=== PATIENT | female | born 1980 | race Caucasian/White ===

== ENCOUNTER 2016-08-13 19:41 | Observation (INO) | payer SELFPAY ==
[2016-08-13] MEDS ORDERED: ALUMINUM & MAGNESIUM HYDROXIDE 30 ML UD PO ONE (19:59)
[2016-08-13] MEDS ORDERED: ONDANSETRON ODT 8 MG TAB SL SCH (20:00)
[2016-08-13] MEDS ORDERED: MORPHINE SULFATE INJ 10 MG/ML VIAL IV ONE (20:27)
[2016-08-13] MEDS ORDERED: SUCRALFATE 1 GM/10 ML 1 GM UD PO ONE (20:27)
--- NOTE | 2016-08-13 20:50 | RAD ---
PROCEDURE: Abdomen Series Clinical History: abdominal pain Indication: Same as above Comparison: Chest x-ray done on 2013 Technique: Two views of the abdomen and pelvis and 1.0 views of the chest were done. Findings: There is no gross evidence of free air in the abdomen or the pelvis . The small and large bowel gas pattern does not show any evidence of obstruction, ileus or bowel wall thickening. There is no visualization of radiopaque calculi in the outline of the urinary tract. There are no discrete airspace infiltrates or pleural effusions. The cardiomediastinal silhouette is unremarkable There is no significant constipation. Impression: Unremarkable chest, abdomen and pelvis Location of Interpretation: [id number] Electronically signed by: Parker Chapman MD 08/13/2016 8:49 PM CDT Workstation: [employer]
[2016-08-13] MEDS ORDERED: SODIUM CHLORIDE 0.9% 1000ML 1,000 ML IVS ONE (21:31)
[2016-08-13] MEDS ORDERED: ACETAMINOPHEN 325 MG TAB PO ONE (21:31)
--- NOTE | 2016-08-13 21:31 | ED.PDOC ---
History of Present Illness - General Chief Complaint: Abdominal Pain Time Seen by Provider: 08/13/16 19:45 Source: patient Exam Limitations: no limitations - History of Present Illness Initial Comments: the patient is a 36-year-old female presenting secondary to epigastric discomfort and moderate nausea for approximately 18 hours. No definite fevers. One to 2 episodes of diarrhea. She was feeling fine prior to that. She does have a history of iron deficiency and has received iron infusions with her previous pregnancies. No syncope or near syncope. No chest pain or shortness of breath. Severity: moderate Improving Factors: nothing Worsening Factors: eating Associated Symptoms: loss of appetite, malaise, nausea/vomiting Allergies/Adverse Reactions: Allergies NO KNOWN ALLERGY Allergy (Verified 08/13/16 19:55) Home Medications: Ambulatory Orders Cetirizine HCl [Zyrtec] 10 mg PO DAILY 07/24/14 Desvenlafaxine Succinate [Pristiq] 25 mg PO DAILY 07/24/14 Fluticasone/Salmeterol 250/50 [Advair Diskus] 1 puff INH DAILY 07/24/14 Vit W/ Ferrous Fumara [] 1 tab PO DAILY 07/24/14 Ferrous Sulfate [Feosol Tab] 325 mg PO QD 08/21/14 Potassium Chloride Tab [Micro-K] 10 meq PO DAILY 08/21/14 Hydrocortisone (Rectal) [Proctocort] 1 % IL QID PRN #1 cre 08/23/14 Famotidine 20 mg PO DAILY #30 tab 08/13/16 Ondansetron [Zofran Odt] 4 mg PO Q4H PRN #10 tab 08/13/16 Review of Systems - Review of Systems Constitutional: States: malaise EENTM: States: no symptoms reported Respiratory: States: no symptoms reported Cardiology: States: no symptoms reported Gastrointestinal/Abdominal: States: see HPI Genitourinary: States: no symptoms reported Musculoskeletal: States: no symptoms reported Skin: States: no symptoms reported Neurological: States: no symptoms reported Endocrine: States: no symptoms reported All other Systems: No Change from Baseline Past Medical History (General) - Patient Medical History Hx Seizures: No Hx Stroke: No Hx Dementia: No Hx Asthma: Yes Hx of COPD: No Hx Cardiac Disorders: No Hx Congestive Heart Failure: No Hx Pacemaker: No Hx Hypertension: No Hx Thyroid Disease: No Hx Diabetes: No Hx Gastroesophageal Reflux: No Hx Renal Disease: No Hx Cancer: No Hx of HIV: No Hx Hepatitis C: No Hx MRSA: No Surgical History: other - Vaccination History Hx Tetanus, Diphtheria Vaccination: Yes Hx Influenza Vaccination: No Hx Pneumococcal Vaccination: No Immunizations Up to Date: No - Social History Hx Tobacco Use: Yes Hx Chewing Tobacco Use: No Hx Alcohol Use: No Hx Substance Use: No Hx Substance Use Treatment: No Hx Depression: No Feels Threatened In Home Enviroment: No Feels Threatened In a Relationship: No Hx Physical Abuse: No Hx Emotional Abuse: No Hx Suspected Abuse: No - Activities of Daily Living Hospice Agency (if applicable):: None - Female History Patient is a Female of Child Bearing Age (10 -59 yrs old): Yes Hx Last Menstrual Period: 08/05/16 Patient : No Expected Date of Delivery:: 08/28/14 Family Medical History - Family History Father Name: ADALBERTO Age (years): 63 Living Status: Still Living Hx Family Hypertension: Yes Age of Onset (years of age): 59 Hx Family Stroke: Yes Age of Onset (years of age): 59 Hx Family Diabetes: Yes - TYPE II Age of Onset (years of age): 55 Mother Family History: No Known Name: Dayanara Age (years): 64 Living Status: Still Living Hx Family Diabetes: - aunt Hx Family Cancer: Yes Brother Family History: No Known Name: Guillermo Physical Exam - Physical Exam General Appearance: Alert, Comfortable, No apparent distress Eye Exam: bilateral normal Ears, Nose, Throat: hearing grossly normal, normal ENT inspection, normal pharynx Neck: non-tender, full range of motion, supple, normal inspection Respiratory: chest non-tender, lungs clear, normal breath sounds, no respiratory distress, no accessory muscle use Cardiovascular/Chest: normal peripheral pulses, no edema, tachycardia - sinus tachycardia mild Peripheral Pulses: radial,right: 2+, radial,left: 2+, dorsalis pedis,right: 2+, dorsalis pedis,left: 2+ Gastrointestinal/Abdominal: soft, other - no palpable masses. No rebound or peritoneal signs. She does have a diffuse discomfort to palpation of the worse in the epigastric area than others. Rectal Exam: deferred Back Exam: normal inspection, no CVA tenderness, no vertebral tenderness Extremity: normal range of motion, non-tender, normal inspection, no pedal edema Neurologic: alert, normal mood/affect, oriented x 3 Skin Exam: normal color Comments: Vital Signs - 24 hr 08/13/16 08/13/16 08/13/16 19:56 20:58 21:20 Temperature 100.1 F H 99.7 F H Pulse Rate [ 105 H 105 H 76 monitor] Respiratory 18 18 Rate Blood Pressure 91/60 [Left Arm] Blood Pressure 116/78 91/60 [Right Arm] O2 Sat by Pulse 98 99 Oximetry Progress - Progress Progress: 08/13/16 21:32 the patient is a 36-year-old female presenting with primarily epigastric discomfort with associated nausea for the better part of the day. Zofran did help with the nausea. Abdominal cramping resolved after 2 mg of morphine. Lab work shows very mild anemia from what is probably iron deficiency. She also has very mild hypokalemia which will be followed. She is also showing some mild dehydration. She did receive a liter of IV fluids. Most likely her symptoms are from a viral gastroenteritis. She is going to be placed on famotidine 20 mg twice daily for a month. She needs to keep well- hydrated. Maalox can be used additionally for symptom control. She needs to avoid large meals, spicy or hot foods, nicotine and caffeine for the next week. She needs to return to the emergency room for any acute worsening. She needs to follow up with her primary care doctor for evaluation of the probable iron deficiency. No supplements are being started at this time secondary to current gastritis. ER warnings were given for any acute worsening. Zofran will be written for as needed use in the future. - Results/Orders Results/Orders: Laboratory Tests 08/13/16 08/13/16 08/13/16 19:46 19:47 20:45 WBC 7.8 RBC 4.56 Hgb 10.5 L Hct 33.1 L MCV 72.6 L MCH 23.0 L MCHC 31.7 L RDW 15.5 H Plt Count 445 H MPV 7.2 L Absolute Neuts (auto) 6.70 Absolute Lymphs (auto) 0.60 L Absolute Monos (auto) 0.40 Absolute Eos (auto) 0.00 Absolute Basos (auto) 0.00 Neutrophils % 86.1 H Lymphocytes % 7.8 L Monocytes % 5.4 Eosinophils % 0.5 L Basophils % 0.2 Normal RBC Morphology 2+poikilocytosis Sodium Potassium Chloride Carbon Dioxide Anion Gap BUN Creatinine BUN/Creatinine Ratio Random Glucose Serum Osmolality Calcium Total Bilirubin AST ALT Alkaline Phosphatase Serum Total Protein Albumin Globulin Albumin/Globulin Ratio Amylase Lipase Urine Color Yellow Urine Appearance Sl cloudy Urine pH 5.5 Ur Specific [place] >= 1.030 Urine Protein Trace Urine Glucose (UA) Negative Urine Ketones 15 H Urine Blood Negative Urine Nitrite Negative Urine Bilirubin Small H Urine Urobilinogen 0.2 Ur Leukocyte Esterase Negative Urine RBC 0-1 Urine WBC 0-1 Ur Epithelial Cells 1-3 Amorphous Sediment 1+ Urine Bacteria 0 Urine Mucus Large Urine HCG, Qual Negative 08/13/16 20:45 WBC RBC Hgb Hct MCV MCH MCHC RDW Plt Count MPV Absolute Neuts (auto) Absolute Lymphs (auto) Absolute Monos (auto) Absolute Eos (auto) Absolute Basos (auto) Neutrophils % Lymphocytes % Monocytes % Eosinophils % Basophils % Normal RBC Morphology Sodium 138 Potassium 3.3 L Chloride 105 Carbon Dioxide 24 Anion Gap 12.3 BUN 15 Creatinine 0.76 BUN/Creatinine Ratio 19.7 Random Glucose 98 Serum Osmolality 276.5 Calcium 9.0 Total Bilirubin 0.5 AST 29 ALT 49 Alkaline Phosphatase 58 Serum Total Protein 7.6 Albumin 4.4 Globulin 3.2 Albumin/Globulin Ratio 1.4 Amylase 52 Lipase 21 L Urine Color Urine Appearance Urine pH Ur Specific [place] Urine Protein Urine Glucose (UA) Urine Ketones Urine Blood Urine Nitrite Urine Bilirubin Urine Urobilinogen Ur Leukocyte Esterase Urine RBC Urine WBC Ur Epithelial Cells Amorphous Sediment Urine Bacteria Urine Mucus Urine HCG, Qual acute abdominal series is nonspecific. Departure - Departure Clinical Impression: Gastroenteritis, Dehydration Disposition: Discharge to Home or Self Care Condition: Fair Departure Forms: ED Discharge - Pt. Copy, Patient Portal Self Enrollment Instructions: DI for Viral Gastroenteritis -- Adult Diet: bland diet Activity: increase activity as tolerated Referrals: Harrison Aguero MD [Primary Care Provider] - 1-5 Days Prescriptions: Famotidine 20 mg PO DAILY #30 tab Ondansetron [Zofran Odt] 4 mg PO Q4H PRN #10 tab PRN Reason: Vomiting Home Medications: Ambulatory Orders Cetirizine HCl [Zyrtec] 10 mg PO DAILY 07/24/14 Desvenlafaxine Succinate [Pristiq] 25 mg PO DAILY 07/24/14 Fluticasone/Salmeterol 250/50 [Advair Diskus] 1 puff INH DAILY 07/24/14 Vit W/ Ferrous Fumara [] 1 tab PO DAILY 07/24/14 Ferrous Sulfate [Feosol Tab] 325 mg PO QD 08/21/14 Potassium Chloride Tab [Micro-K] 10 meq PO DAILY 08/21/14 Hydrocortisone (Rectal) [Proctocort] 1 % IL QID PRN #1 cre 08/23/14 Famotidine 20 mg PO DAILY #30 tab 08/13/16 Ondansetron [Zofran Odt] 4 mg PO Q4H PRN #10 tab 08/13/16 Additional Instructions: the patient is a 36-year-old female presenting with primarily epigastric discomfort with associated nausea for the better part of the day. Zofran did help with the nausea. Abdominal cramping resolved after 2 mg of morphine. Lab work shows very mild anemia from what is probably iron deficiency. She also has very mild hypokalemia which will be followed. She is also showing some mild dehydration. She did receive a liter of IV fluids. Most likely her symptoms are from a viral gastroenteritis. She is going to be placed on famotidine 20 mg twice daily for a month. She needs to keep well- hydrated. Maalox can be used additionally for symptom control. She needs to avoid large meals, spicy or hot foods, nicotine and caffeine for the next week. She needs to return to the emergency room for any acute worsening. She needs to follow up with her primary care doctor for evaluation of the probable iron deficiency. No supplements are being started at this time secondary to current gastritis. ER warnings were given for any acute worsening. Zofran will be written for as needed use in the future.
[2016-08-13] MEDS ORDERED: PROCHLORPERAZINE INJ 10 MG/2 ML VIAL IV ONE (22:14)
[2016-08-13] MEDS ORDERED: PANTOPRAZOLE SODIUM IV 40 MG VIAL IV ONE (22:15)
--- NOTE | 2016-08-13 22:32 | HP ---
SUPERVISING PHYSICIAN: Santo Chapman MD CHIEF COMPLAINT: Abdominal pain. HISTORY OF PRESENT ILLNESS: This is a 36-year-old female patient woke up about 1 AM this morning with severe, diffuse abdominal pain. It worsened to the point that at 5 AM she woke up and had nausea and vomiting. She vomited 6 to 7 times today and the pain was radiating to her back. Also during the day, she had four episodes of diarrhea and the pain worsened to the point that she had to come to the Emergency Room. She has a history of iron deficiency anemia during her and she received multiple iron infusions. She also has a history of electrolyte imbalances, especially potassium and magnesium. In the Emergency Room, she had an abdominal x-ray done that was unremarkable chest, abdomen and pelvis per radiologic interpretation. Her labs showed WBC 7.8, hemoglobin 10.5, hematocrit 33.1, neutrophils 86.1. MCH 23, MCHC 31.7, platelet count 445. Chemistries were unremarkable except potassium low at 3.3. Amylase 52, lipase 41. Urine showed 15 urine ketones and a small amount of urine bilirubin. I was called for admission to the hospital. PAST MEDICAL HISTORY: 1. Asthma. 2. Polycystic ovary syndrome. 3. Iron deficiency anemia. 4. Electrolyte imbalance. PAST SURGICAL HISTORY: 1. Gynecological surgery times 3 for polycystic ovary syndrome. OUTPATIENT MEDICATIONS: 1. Advair. 2. Zyrtec. ALLERGIES: NO KNOWN DRUG ALLERGIES. SOCIAL HISTORY: She is . She has one child. She is a respiratory therapist. She lives in [place] and she denies any tobacco, ETOH, or illicit drug use. REVIEW OF SYSTEMS: Negative except as per history of present illness. PHYSICAL EXAMINATION: VITAL SIGNS: Temperature 100.1. Pulse 76. Blood pressure 91/60. Respiratory rate 18. O2 saturation 99% on room air. GENERAL: This is a 36-year-old female patient who is lying in her hospital bed. She is in no acute distress. HEENT: Normocephalic, atraumatic. Pupils are equal and reactive. Oropharynx is clear. NECK: Supple without mass. No jugular venous distention. RESPIRATORY: Clear to auscultation bilaterally. CHEST: There is equal rise and fall of the chest with inspiration and expiration. CARDIOVASCULAR: Regular rate and rhythm. ABDOMEN: Soft. Diffusely tender. There is no rebound tenderness, or is there any guarding. Bowel sounds are positive. EXTREMITIES: No cyanosis, clubbing or edema. NEUROLOGIC: Awake, alert and oriented times three. LABORATORY: Labs and films are per the history of present illness. ASSESSMENT: 1. Gastritis. 2. Nausea and vomiting. 3. Iron deficiency anemia. 4. Hypokalemia. 5. Asthma. 6. History of electrolyte imbalance. PLAN: We will place the patient in observation. I have added a magnesium to the present lab. We will make her NPO. I will hold off on any antibiotics at this time and see how she does in the morning. I may have to do a CT scan of the abdomen. I will guaiac her stools. I will give her q.12h. IV Protonix. She will also receive some potassium replacement. She will receive antiemetics. She received 1 liter of fluids in the Emergency Room and at this point, I do not believe she is dehydrated. We will repeat her labs in the morning. She may need follow up with GI, hematology and/or CHIEF OF SURGERY. I have also ordered some p.r.n. breathing treatments and I will restart her home medications in the morning. We will continue to monitor closely and followup as needed. Dr. Chapman is the collaborating physician and available for consultation. #[id number] [facility]
[2016-08-13] MEDS ORDERED: IV SET AND CAP CHANGE INJ INJ SCH (23:45)
[2016-08-13] MEDS ORDERED: ALBUTEROL SULFATE 2.5 MG/3 ML VIAL NEB PRN (23:45)
[2016-08-13] MEDS ORDERED: KCL 20MEQ/WATER FOR INJ 100ML 20 MEQ in PREMIX BAG 1 BAG IVPB ONE (23:53)
[2016-08-14] MEDS ORDERED: SODIUM CHLORIDE 0.9% 250ML 250 ML IVS PRN (00:07)
[2016-08-14] MEDS ORDERED: KCL 20MEQ/WATER FOR INJ 100ML 100 ML IVPB ONE (00:11)
[2016-08-14] MEDS: PANTOPRAZOLE SODIUM IV 40 MG VIAL IV SCH ×2 (08:50→20:57)
[2016-08-14] MEDS: CETIRIZINE HCL 10 MG TAB PO SCH (08:50)
[2016-08-14] MEDS ORDERED: FLUTICASONE/SALMETEROL 250/50 14 PUFF/17 GM INH INH SCH ×2 (09:00)
[2016-08-14] MEDS: MORPHINE SULFATE INJ 10 MG/ML VIAL IV PRN ×3 (09:01→20:57)
[2016-08-14] MEDS: ONDANSETRON INJ 4 MG/2 ML VIAL IV PRN ×2 (09:01→15:39)
--- NOTE | 2016-08-14 09:45 | PN ---
SUPERVISING PHYSICIAN: Santo Chapman MD DATE: 08/14/16 SUBJECTIVE: The patient is sleeping in her hospital bed. She awakens easily. She complains that her stomach has hurt off and on all night long. It is some better, but she still has quite a bit of cramping as well as nausea. Otherwise , she denies chest pain, shortness of breath or diarrhea. OBJECTIVE: VITAL SIGNS: Afebrile. Heart rate 76. Blood pressure 94/57. Respiratory rate 18. O2 saturation 97% on room air. GENERAL: This is a 36-year-old female patient who is lying in her hospital bed. She is in no acute distress. LUNGS: Clear to auscultation bilaterally. CARDIAC: Regular rate and rhythm. ABDOMEN: Soft, nondistended, diffusely tender. Bowel sounds are positive. There is no rebound tenderness. There is no guarding. NEUROLOGIC: Awake, alert and oriented times three. LABORATORY: WBC 4.3, hemoglobin has dropped from 10.5 to 8.7 and hematocrit has dropped from 33.1 to 27.6. Chemistries are basically within normal limits with the exception of her calcium is 7.8 and serum total protein is 6.1. All other labs and films have been reviewed via the EMR. ASSESSMENT: 1. Gastritis. 2. Iron deficiency anemia. 3. Nausea and vomiting, mostly resolved. 4. Hypokalemia, resolved. 5. Asthma. 6. History of electrolyte imbalance. PLAN: We will continue present supportive care. She will continue her NPO status until later today as her abdominal pain improves. I will do a CT of the abdomen and depending on what that shows, we may do a sonogram. At some point, she will need a referral to hematology as well as she may need a referral to GI and [facility]. Depending on her CT, I will most likely add some Flagyl and some Levaquin. Hopefully she will improve to the point where we can discharge her tomorrow with appropriate referrals. I have also added an anemia panel today. We will continue to monitor the patient closely and followup as needed. Dr. Chapman is the collaborating physician and available for consultation. #[id number] [facility]
[2016-08-14] MEDS: FLUTICASONE/SALMETEROL 250/50 14 PUFF/17 GM INH INH SCH (11:23)
--- NOTE | 2016-08-14 12:11 | CT ---
Study: CT abdomen and pelvis. Indication: abd pain Technique: Venous phase CT imaging of the abdomen and pelvis obtained after intravenous administration of contrast. This exam was performed according to our departmental dose-optimization program, which includes automated exposure control, adjustment of the mA and/or kV according to patient size and/or use of iterative reconstruction technique. Comparison: August 13, 2016 radiographs. Findings: Lower chest, liver, gallbladder, pancreas, spleen, adrenal glands unremarkable. Two 1 mm central obstructing right renal calculi. No hydronephrosis. Several left renal cysts. Bladder unremarkable. Uterus heterogeneous, likely fibroids. Several indeterminate bilateral ovarian lesions with the largest in the left measuring up to 2 cm and demonstrating density greater than that of fluid. Mild colonic diverticulosis. Appendicolith noted within the appendix which is mildly dilated up to 8 mm but without significant inflammatory change surrounding this site. More distally it is normal in caliber. Tiny hiatal hernia. Small bowel unremarkable. Trace free pelvic fluid. No free air. No acute osseous abnormality. Minimal atherosclerosis right common iliac artery. Impression: Tiny appendicolith in the proximal appendix which is minimally dilated. These findings could indicate very early acute appendicitis. Correlation with physical examination and white blood cell count recommended. Baseline surgery consultation may prove useful. Heterogeneous uterus, likely fibroids. Indeterminate bilateral ovarian lesions. Nonemergent pelvic sonogram could better evaluate. Tiny central nonobstructing right renal calculi. Additional findings as above. Electronically signed by: Derik Bennett MD 08/14/2016 12:11 PM CDT
[2016-08-14] MEDS: SODIUM CHLORIDE 0.9% (FLUSH) 10 ML SYG IV PRN (15:39)
[2016-08-14] MEDS: MAGNESIUM HYDROXIDE 30 ML UD PO SCH ×2 (15:40→19:54)
[2016-08-14] MEDS: ACETAMINOPHEN 325 MG TAB PO PRN (18:07)
[2016-08-14] MEDS: PROCHLORPERAZINE INJ 10 MG/2 ML VIAL IV PRN (18:37)
[2016-08-15] MEDS: MORPHINE SULFATE INJ 10 MG/ML VIAL IV PRN ×2 (03:51→05:56)
[2016-08-15] MEDS: SODIUM CHLORIDE 0.9% (FLUSH) 10 ML SYG IV PRN ×3 (03:52→21:06)
[2016-08-15] MEDS: ONDANSETRON INJ 4 MG/2 ML VIAL IV PRN ×2 (08:12→22:32)
--- NOTE | 2016-08-15 09:25 | PCM.CORE ---
Physician DVT/VTE - Nurse DVT Assessment & Total Each Risk Factor Represents 1 Point: Hx of smoking past year DVT Assessment Score: 1 - 0-1 Low Risk Treatments: Early Ambulation, Low Risk no further treatment or intervention needed
[2016-08-15] MEDS: ACETAMINOPHEN 325 MG TAB PO PRN (09:26)
[2016-08-15] MEDS: CETIRIZINE HCL 10 MG TAB PO SCH (09:26)
[2016-08-15] MEDS: PANTOPRAZOLE SODIUM IV 40 MG VIAL IV SCH ×2 (09:27→21:06)
[2016-08-15] MEDS: METOCLOPRAMIDE HCL INJ 10 MG/2 ML VIAL IV SCH ×3 (11:28→23:03)
--- NOTE | 2016-08-15 11:56 | CONS ---
DATE OF CONSULTATION: 08/15/16 REFERRING PHYSICIAN: Fe Baron [facility] HISTORY OF PRESENT ILLNESS: The patient is a 36-year-old female who had significant nausea and vomiting that was uncontrollable with some abdominal pain. She noted that the pain radiated to her back initially. She also had multiple episodes of loose stool, but denies blood in her stool or vomitus. She denies melanotic stools. There is a history of iron deficiency anemia during . She has a history of electrolyte imbalances, especially potassium and magnesium. White blood cell count was initially normal and has remained so with a normal differential. Amylase and lipase were within normal limits. The initial urine revealed small amount of bilirubin. PAST MEDICAL HISTORY: 1. Polycystic ovary syndrome. 2. Iron deficiency anemia. 3. Electrolyte imbalance. 4. Asthma. PAST SURGICAL HISTORY: 1. Gynecological surgery times 3. 2. Childbirth times 1. OUTPATIENT MEDICATIONS: 1. Advair. 2. Zyrtec. ALLERGIES: NO KNOWN DRUG ALLERGIES. SOCIAL HISTORY: The patient is . 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 She denies tobacco or alcohol use. REVIEW OF SYSTEMS: Unremarkable except as in the history of present illness. PHYSICAL EXAMINATION: GENERAL: The patient is awake, alert, cooperative, in no acute distress. HEENT: Sclerae nonicteric. Mucous membranes moist. NECK: Without adenopathy. BACK: Without CVA tenderness. CHEST: Equal breath sounds bilaterally. HEART: Regular rate and rhythm. ABDOMEN: Soft. There is mild tenderness throughout the whole right side, both in the right upper quadrant, right lower quadrant and the right mid abdomen. There is no CVA tenderness. PELVIC/RECTAL: Deferred. EXTREMITIES: Without cyanosis, clubbing or edema. LABORATORY: White blood cell count 3.9, hemoglobin 8.7, platelet count 338,000 , 47% neutrophils. CT scan of the abdomen is essentially unremarkable. There is a question of an appendicolith and mild dilation of the appendix with no periappendiceal swelling or inflammatory changes. ASSESSMENT: 1. Abdominal pain, nausea and vomiting of uncertain etiology. Doubt appendicitis as the pain has actually improved, as has the white count, despite treatment without antibiotics. RECOMMENDATION: The patient does have some right upper quadrant pain, so we will obtain an ultrasound of the abdomen and then add Reglan and attempt to advance the diet if the ultrasound is unremarkable. #[id number] [facility]
[2016-08-15] MEDS: KCL 20MEQ/D5 1/2NS 1,000 ML IVS PRN ×2 (12:48→22:31)
--- NOTE | 2016-08-15 13:43 | US ---
EXAM DESCRIPTION: Pelvis Transvaginal CLINICAL HISTORY: 36 years,Female,PCOS; abd pain COMPARISON: None TECHNIQUE: Multiple real-time sonographic images seen of the pelvis transvaginal for greater detail imaging. FINDINGS: The uterus is retroverted in position. It measures seven cm in length by 4.4 x 5.1 cm. Myometrium is demonstrate a large nabothian cysts near the cervix measuring 1 cm in size. Possible fibroid seated the posterior body transmural measuring about 2 x 1.5 cm although I do not appreciate it much on these still images.. Endometrial stripe is unremarkable measuring five mm in thickness. The right ovary is unremarkable. The right is 3.9 x 2.2 x 2.2 cm. It has normal vascular waveforms. The left ovary is unremarkable. The left is 3.9 x 1.9 x 2.8 cm. It has normal vascular waveforms. And contains a dominant 2.3 x 1.5 cm follicle. No free fluid in pelvis. tab IMPRESSION: Nabothian cysts in the cervical segment and a possible transmural fibroid in the posterior wall of the uterus. The ovaries do NOT have a classic polycystic ovarian appearance today. Electronically signed by: Octaviano Rankin MD 08/15/2016 1:42 PM CDT
--- NOTE | 2016-08-15 13:56 | US ---
EXAM DESCRIPTION: Abdomen,Complete CLINICAL HISTORY: PCOS; abd pain COMPARISON: CT scan August 14, 2016 TECHNIQUE: Real-time sonographic images of the abdomen are obtained. FINDINGS: Pancreas is unremarkable. The right lobe of the liver measures 14.3 cm. The liver is diffusely homogeneous and normal in echogenicity. No focal hepatic mass is seen. The gallbladder is normally distended and free of abnormal internal echogenicities. No gallbladder wall thickening or pericholecystic fluid is seen. The common bile duct measures 3.0 mm in greatest diameter. The right kidney measures 11.7 x 5.4 x 5.5 cm. The left kidney measures 10.9 x 5.9 x 5.8 cm. There is a 1.5 x 1.1 x 1.0 cm anechoic cyst in the lower pole of the left kidney contains some internal echoes. There is a second 1.4 x 1.1 x 1.3 cm anechoic cyst of the lower pole left kidney. Both kidneys show normal renal cortical echogenicity. No hydronephrosis is seen. The spleen measures 11.3 cm. Visualized IVC and abdominal aorta are within normal limits. IMPRESSION: Simple lower pole left renal cortical cyst measuring 14 mm. There is a 15 mm cortical cyst of the lower pole left kidney that contains some internal echoes. This may be partly due to imaging technique. No abnormal enhancement is seen on recent CT scan. Consider follow-up ultrasound imaging in 6 months to determine stability.. Electronically signed by: Tee Schultz MD 08/15/2016 1:56 PM CDT
[2016-08-15] MEDS: HYDROmorphone HCL INJ 2 MG/ML VIAL IV PRN ×2 (17:13→21:04)
[2016-08-15] MEDS: HYDROcodone 5MG/APAP 325MG 1 EA TAB PO PRN (18:37)
[2016-08-15] MEDS: ALPRAZolam 0.25 MG TAB PO PRN (21:02)
[2016-08-15] MEDS: PROCHLORPERAZINE INJ 10 MG/2 ML VIAL IV PRN (21:03)
[2016-08-16] MEDS: METOCLOPRAMIDE HCL INJ 10 MG/2 ML VIAL IV SCH ×2 (05:37→09:41)
[2016-08-16] MEDS: KCL 20MEQ/D5 1/2NS 1,000 ML IVS PRN (06:30)
--- NOTE | 2016-08-16 08:10 | PN ---
SUPERVISING PHYSICIAN: Alfredito Johnson MD DATE: 08/15/16 SUBJECTIVE: The patient was initially seen early this morning and she had not tolerated her clear liquids at that time. I had changed her to NPO status and she continued complaints of some right upper quadrant abdominal pain that extended to her right flank. She was given antiemetics. Dr. Arnett and I returned to her room later and discussed her CT scan results with her and explained to her we would do a sonogram. I reviewed with her her sonogram results later and explained to her we will attempt again to advance her diet and also give her some Reglan. Otherwise, she has had no complaints of chest pain or shortness of breath. She does complain of some constipation. OBJECTIVE: VITAL SIGNS: Afebrile. Pulse 68. Blood pressure 96/63. Respiratory rate 16. O2 saturation 96%. LUNGS: Clear to auscultation bilaterally. CARDIAC: Regular rate and rhythm. ABDOMEN: Soft, nondistended. She has mild diffuse tenderness in the umbilical area and moderately tender in the right upper quadrant. There is no rebound tenderness or guarding. NEUROLOGIC: Awake, alert and oriented times three. LABORATORY: WBC 3.9, hemoglobin and hematocrit stable at 8.7 and 27.4. Potassium slightly low at 3.5. She has one positive stool occult blood and one negative stool occult blood. Her transvaginal ultrasound per radiologic interpretation shows a nabothian cyst in the cervical segment and possible transmural fibroid in the posterior wall of the uterus. The ovaries do not have a classic polycystic ovary appearance today. Her abdominal ultrasound per radiologic interpretation shows simple lower pole left renal cortical cyst measuring 14 mm. There is a 15 mm cortical cyst of the lower pole of the left kidney that contains some internal echoes. This may be partly due to imaging technique. No abnormal enhancement is seen on recent CT scan. Consider followup ultrasound imaging in 6 months to determine stability. All other labs and films have been reviewed via the EMR. ASSESSMENT: 1. Right upper and lower quadrant abdominal pain that may be due to gastritic, but also could indicate an early appendicitis per CT scan. There is consideration of fibroids per her ultrasound. 2. Iron deficiency anemia. 3. Nausea and vomiting, continues. 4. Hypokalemia, continues. 5. Asthma. 6. History of electrolyte imbalance. PLAN: We will continue present supportive care. I will defer most of the abdominal issues per Dr. Arnett. He has recommended that I start Reglan, which I did. We will try to advance her diet as she tolerates it. She will need a followup with Dr. Ritter, her ALARM INSTALLATION TECHNICIAN, and I have sent copies of her ultrasound to him. We will do a BMP and CBC in the morning. Hopefully, she tolerates her diet and we can discharge her in the next couple of days. We will continue to monitor the patient closely and followup as needed. Dr. Johnson is the collaborating physician and available for consultation. #[id number] [facility]
[2016-08-16] MEDS: FLUTICASONE/SALMETEROL 250/50 14 PUFF/17 GM INH INH SCH (08:27)
[2016-08-16] MEDS: PANTOPRAZOLE SODIUM IV 40 MG VIAL IV SCH (09:41)
[2016-08-16] MEDS: CETIRIZINE HCL 10 MG TAB PO SCH (09:41)
[2016-08-16] MEDS: HYDROcodone 5MG/APAP 325MG 1 EA TAB PO PRN (12:17)
[2016-08-16] MEDS: METOCLOPRAMIDE HCL 5 MG TAB PO SCH ×2 (13:38→16:12)
[2016-08-16] MEDS: ALPRAZolam 0.25 MG TAB PO PRN (14:38)
[2016-08-16 19:46] VITALS: BP 93/51; TEMP 98.1; O2SAT 100
--- NOTE | 2016-08-17 09:52 | DS ---
SUPERVISING PHYSICIAN: Alfredito Johnson MD DISCHARGE DIAGNOSES: 1. Right upper and lower abdominal pain that may be due to gastritis but also could indicate an early appendicitis. Per CT scan there is also consideration of fibroids contributing to her pain that was shown on her abdominal ultrasound. 2. Iron deficiency anemia. 3. Nausea and vomiting that has resolved. 4. Hypokalemia that has resolved. 5. Asthma. 6. History of electrolyte imbalance. HISTORY OF PRESENT ILLNESS: This is a 36-year-old female patient who woke up about 1 AM on the date of admission with severe, diffuse abdominal pain. It worsened to the point that at 5 AM she became very nauseated with vomiting. She vomited 6 to 7 times today that day and the pain radiated to her back. She also had multiple episodes of diarrhea. The pain worsened to the point that she came to the Emergency Room. She has a significant history of iron deficiency anemia during her as well as a history of PCOS. During her she received multiple iron infusions. She also has a history of electrolyte imbalances, especially her potassium and magnesium. Her abdominal x -ray in the Emergency Room was unremarkable. Her labs showed WBC 7.8, hemoglobin 10.5, hematocrit 33.1, neutrophils 86.1. MCH 23, MCHC 31.7, platelet count 445. Her potassium was low at 3.3, amylase 52, lipase 41. Urine showed 15 urine ketones and a small amount of urine bilirubin. She was admitted to the hospital. Over the next several days she continued with nausea and vomiting and several times after trying to advance her diet she had to go back to n.p.o. Dr. Arnett was consulted after a CT of her abdomen per radiology interpretation showed a tiny appendicolith in the proximal appendix that was minimal dilated and the findings could indicate very early appendicitis and recommended a baseline surgical consultation. It also showed heterogeneous uterus, likely fibroid, indeterminate bilateral ovarian lesions, lauren central nonobstructing right renal calculi. Dr. Arnett monitored her progress closely during this time. No antibiotics were started but she was given several days of bowel rest. She was also given milk of magnesia for constipation. A transvaginal ultrasound showed nabothian cyst in cervical segment and a possible transmural fibroid in the posterior wall of the uterus, also showed the ovaries do not have a classic polycystic ovarian appearance today. An abdominal ultrasound was done and showed a simple lower pole of the left renal cortical cyst measuring 14 mm as well as a 15 mm cortical cyst of the lower pole of the left kidney that contained some internal echoes. She received pain medications antiemetics and eventually received some Reglan. After receiving Reglan she was able to advance her diet. This morning she had a full liquid diet for breakfast and then had a regular diet for lunch. She has had no further complaints of nausea or vomiting. Temperature was observed during her hospital stay as well as she had a stable white blood cell count from 3.9 to 7.8. There is some concern that her hemoglobin and hematocrit started out on admission at 10.5 and 33.1 and today on date of discharge it is 8.3 and 26.3. The patient's vital signs have been stable. She has no further complaints of nausea or vomiting, diarrhea or constipation. She will be discharged. DISCHARGE PLAN: The patient will be discharged home in stable condition. She is to resume her previous diet but it has been recommended that she keep her diet fairly bland for right now. She is to return to the hospital if she has any further abdominal pain, especially if accompanied by fever. I have given her Reglan for two weeks as well as some Zofran for nausea. She has an appointment with Dr. Ritter on Friday. She needs to call Dr. Aguero's office to get an appointment for followup with him. I am not quite sure where she is bleeding or why she is anemic but she may need to see GI hematology after she sees Dr. Ritter. She also does not presently have insurance and paper work has been started at the hospital for her insurance and she is to be in touch with [employer] here if she has any problems with her insurance. Dr. Johnson is the collaborating physician available for consultation. DISCHARGE MEDICATIONS: 1. Advair. 2. Cetirizine. 3. Reglan. 4. Zofran. #[id number] and [id number] [facility]
== END 2016-08-16 18:00 | disposition home or self-care (01) ==
LOC: ER 19:41 → MS 22:31
PROVIDERS: ADMIT Nurse Practitioner Acute Care; ATTEND Nurse Practitioner Acute Care
DX: K29.60 Other gastritis without bleeding (principal); R10.13 Epigastric pain; R10.11 Right upper quadrant pain; R10.31 Right lower quadrant pain; D50.9 Iron deficiency anemia, unspecified; R11.2 Nausea with vomiting, unspecified; E87.6 Hypokalemia; E86.0 Dehydration; J45.909 Unspecified asthma, uncomplicated; E28.2 Polycystic ovarian syndrome; N20.0 Calculus of kidney; N28.1 Cyst of kidney, acquired; K57.30 Diverticulosis of large intestine without perforation or abscess without bleeding; K44.9 Diaphragmatic hernia without obstruction or gangrene; Z79.51 Long term (current) use of inhaled steroids; Z79.899 Other long term (current) drug therapy; Z82.49 Family history of ischemic heart disease and other diseases of the circulatory system; Z82.3 Family history of stroke; Z83.3 Family history of diabetes mellitus
CPT/HCPCS: 36415 ×4; 74020; 74177; 76700; 76830; 80048; 80053 ×3; 81001; 81025; 82150; 82270 ×2; 82728; 83540; 83550; 83690; 83735 ×2; 85025 ×4; 85045; 94640; 94664; 94760 ×13; 96361; 96365; 96366 ×2; 96375 ×3; 96376 ×3; 99284; G0378; J0780 ×3; J1170 ×2; J2270 ×6; J2405 ×4; J2765 ×5; J3480; J7030; J7050